=== PATIENT | female | born 1950 | race Caucasian/White ===

== ENCOUNTER → 2017-10-16 | Outpatient (CLI) | payer MEDICARE ==
[~2017-10-16] VITALS: Ht 160 cm; Wt 72.9 kg
[~2017-10-16] MED LIST: ACETAMINOPHEN 500 MG TABLET ONE; ACETAMINOPHEN 500 MG TABLET PO ONE; ASPI-496 PO; BACITRACIN 50,000 UNIT ONE; BUPIVACAINE/PF 0.25% ONE; CYCL-259 PO; DILT120C80 PO; DILT60CA PO; EPINEPHRINE 1 MG/ML, 1ML ONE; FAMOTIDINE 20 MG TABLET ONE; FAMOTIDINE 20 MG TABLET PO ONE; FISH1CAP PO; FURO20TA3 PO; GABA100C PO; GABAPENTIN 300 MG CAPSULE ONE; GABAPENTIN 300 MG CAPSULE PO SCH; LACTATED RINGERS 1,000 ML IV SCH; LEVO88TA4 PO; MELA1TAB8 PO; METOCLOPRAMIDE 10MG TABLET ONE; METOCLOPRAMIDE 10MG TABLET PO SCH; MINERAL OIL 10 ML VIAL MC ONE; OMEP-110 PO; OXYC-302 PO; PRAV40TA2 PO; THROMBIN 5,000 UNIT VIAL TP ONE; TRAZ50TA18 PO; [UNRECOGNIZED DRUG - REMARK] PO
[2017-10-16 09:24] VITALS: BP 182/84
== END | disposition home or self-care (01) ==
LOC: UNDOADMIN 07:31 → ORIP 07:31 → SDC 07:31 → EDSTATUS 10:30 → UNDODISIN 11:00
PROVIDERS: ATTEND Neurological Surgery
DX: Z01.818 Encounter for other preprocedural examination (principal); M54.12 Radiculopathy, cervical region
CPT/HCPCS: 36415; 71045; 86850; 86900; J0171; J3490; J7120